=== PATIENT | male | born 1980 | race African-American/Black ===

== ENCOUNTER 2024-03-18 23:53 | Emergency (ER) | payer SELFPAY ==
[2024-03-18 23:56] VITALS: BP 137/88
[2024-03-19 00:21] VITALS: BMI 24.7
--- NOTE | 2024-03-19 01:51 | ED.GENMED ---
History of Present Illness
General
Chief Complaint: Crisis Evaluation
Source: patient and ambulance crew
Time Seen by Provider: 03/18/24 23:54
Nursing documentation reviewed up to this point in time: agreed with
History of Present Illness
History of Present Illness:
44-year-old male presents to the emergency department after being found at the [facility] trying to sleep in the parking garage. Patient states that he has been having suicidal ideation. He admits to 'cut' himself with a piece of
glass. Patient wishes to be voluntarily placed in a hospital. Denies any medical problems at this time. Reports no homicidal ideation.
Review of Systems
Review of Systems
Allergies reviewed?: Yes
All Other Systems: ROS reviewed and negative except as documented in HPI and ROS
Constitutional: Reports no symptoms
EENT: Reports no symptoms
Respiratory: Reports no symptoms
Cardiac: Reports no symptoms
ABD/GI: Reports no symptoms
: Reports no symptoms
Musculoskeletal: Reports no symptoms
Skin: Reports no symptoms
Neurological: Reports no symptoms
Endocrine: Reports no symptoms
Hematologic/Lymphatic: Reports no symptoms
Psychiatric: Reports depression, anxiety and suicidal
Phy Exam
General Physical Exam
General Presentation: well appearing and no apparent distress
General Skin: warm and dry
General Habitus: normal
General Mental: alert
General Hydration: appears well hydrated
ENT Exam
ENT Exam: EOMI, pharynx normal, neck supple and normocephalic
Eye Exam
Eye Exam: PERRL, cornea clear and conjunctiva normal
Cardiovascular Exam
Cardiovascular Exam: regular rate/rhythm, no edema, no murmur and normal peripheral pulses
Pulmonary Exam
Pulmonary Exam: lungs clear, no respiratory distress, no rales, no crackles, no rhonchi, no stridor, no wheezing and no cough
Gastrointestinal Exam
Gastrointestinal Exam: normal bowel sounds, non tender, soft, no organomegaly, no pulsatile mass and non distended
Neurological Exam
Neurological Exam: alert, oriented x3, no motor deficits and speech normal
Musculoskeletal Exam
Musculoskeletal Exam: full ROM and no edema
Skin Exam
Skin Exam: normal color, warm/dry, no rash and no petechia
Psychiatric Exam
Psychiatric Exam: normal mood/affect
Course
Orders/Labs/Results
Orders:
Orders
03/19/24 00:06
1:1 Observation - Suicide/ Violent Behavior As Directed
03/19/24 00:13
Crisis Consult Urgent
Reason for Consult: suicidal ideation
Vital Signs
Initial and Last Documented VS:
Initial Vital Signs
Temp Pulse Resp BP Pulse Ox
97.3 F 55 14 137/88 100
03/18/24 23:56 03/18/24 23:56 03/18/24 23:56 03/18/24 23:56 03/18/24 23:56
Last Documented Vital Signs
Temp Pulse Resp BP Pulse Ox
97.3 F 55 14 137/88 100
03/18/24 23:56 03/18/24 23:56 03/18/24 23:56 03/18/24 23:56 03/18/24 23:56
*Critical Care Note
Total Time (30-74mins, 75-104mins- exclusive of procedures): Not Applicable
Update Note
Update Note:
Patient voluntarily wishes to be placed in a psychiatric hospital. Patient seen by crisis. The abrasion to his wrist is superficial and almost nonvisible. There is absolutely no repair needed. Given that he picked up a piece of glass on the
street, he will get a tetanus shot. He is unsure if his tetanus status is up-to-date. He does not remember getting a tetanus shot. Patient has no further questions and is resting comfortably.
ED Attending Note
-
Portions of this chart may have been created with voice recognition software.� Occasional wrong word or��sound alike� substitutions may have occurred due to the inherent limitations of voice recognition software.
Discharge Plan
Departure
Patient Disposition: Psych Facility
Date of Disposition: 03/19/24
Time of Disposition: 02:04
Patient Status:: 201
Condition: Good
Discharge Problem:
Depression with suicidal ideation
Instructions: BLOOD PRESSURE, Depression, Adult (DC)
Referrals:
Hussein,Ana [Active] -
Activity Restrictions/Additional Instructions:
It was a pleasure meeting you and taking part in your care. We hope for your continued healing and wellness.
Please read discharge instructions in their entirety. However, they are for general education and may not describe your exact diagnosis at discharge. Information on your ER visit and medical conditions were discussed with you along with appropriate
follow up information...
If indicated, please take your medications as instructed and indicated on discharge paperwork.
Please schedule a follow up appointment as directed. Call to schedule an appointment
Please return to the emergency department with ANY change in, persisting, or worsening of symptoms. If any of your symptoms do not improve, or persist, or become more severe within 6-12 hours, please return to the emergency department for further
care.
Please return to the emergency department if you develop a headache, neck pain/stiffness, fever greater than 100.4F, chest pain, shortness of breath, persistent nausea, vomiting, slurred speech, difficulty walking, numbness/tingling, weakness, signs
of infection or any other symptoms that are worrisome to you.
If you have any questions or concerns please do not hesitate to call the Hospital at
Interventions
Interventions:
*Risk Screen - Suicide Last Done: 03/19/24 00:03
*General Assessment Last Done: 03/19/24 00:09
*Neglect/Abuse Screening Last Done: 03/19/24 00:09
*ED COVID-19 Vaccine History Last Done: 03/19/24 00:09
ED-Psychological Assessment Last Done: 03/19/24 00:22
Discharge Date and Time
Print Language: SUDANESE
[2024-03-19] MEDS: ADACEL 0.5 ML IM (02:10)
[2024-03-19 03:39] LABS: Amphetamines Negative (Negative); Barbiturates Negative (Negative); Benzodiazepines Negative (Negative); Buprenorphine Negative (Negative); Cocaine Negative (Negative); Marijuana Negative (Negative); Methadone Negative (Negative); Methamphetamines Negative (Negative); Opiates Negative (Negative); Phencyclidine Negative (Negative); Tricyclic Antidepressants Negative (Negative)
== END 2024-03-19 15:28 ==
LOC: EMR 23:53
PROVIDERS: EMERGENCY PHYSICIAN Student in an Organized Health Care Education/Training Program
DX: R45.851 Suicidal ideations (principal); F32.A Depression, unspecified; S60.812A Abrasion of left wrist, initial encounter; X78.0XXA Intentional self-harm by sharp glass, initial encounter; Y92.481 Parking lot as the place of occurrence of the external cause; Z23 Encounter for immunization; K21.9 Gastro-esophageal reflux disease without esophagitis; F43.10 Post-traumatic stress disorder, unspecified; Z87.01 Personal history of pneumonia (recurrent)
CPT/HCPCS: 99285; 90471; 80306; 90715